=== PATIENT | male | born 1945 | race Caucasian/White ===

== ENCOUNTER 2018-05-15 22:17 | Emergency (ER) | payer OTHER, MEDICARE ==
[2018-05-15] MEDS ORDERED: Cyclobenzaprine 10 MG Tab PO ONE (22:39)
[2018-05-15] MEDS ORDERED: predniSONE 20 MG Tab PO ONE (22:39)
[2018-05-15] MEDS ORDERED: Ketorolac 30 MG/ML SDV IM ONE (22:39)
[2018-05-15] MEDS ORDERED: Take Home: Cyclobenzaprine 10 MG Tab, 4 Tab Pack PO ONE (22:40)
--- NOTE | 2018-05-15 22:48 | EDM.PDOC ---
ED HPI GENERAL MEDICAL PROBLEM - General Chief Complaint: Back Pain or Injury Stated Complaint: Back pain with spasms Time Seen by Provider: 05/15/18 22:33 Source of Information: Reports: Patient History Limitations: Reports: No Limitations - History of Present Illness INITIAL COMMENTS - FREE TEXT/NARRATIVE: Patient presents this evening with complaints of lower back pain. States for the last 2 days he's been following up and putting away his aboveground pool. He 's been making shovel-like movements while pulling when it in order to do this. He also describes the pain as being spasm-like. He states that it'll spasm, causing tightness of his muscles to the lower left side as well as into the abdominal muscles. He does also state that earlier this evening retreaded to do some additional physical work and due to the pain he dropped to his knees. He denies any numbness or tingling down either leg. He states that tonight's pain started around 5:00. He did take a couple of ibuprofen earlier this evening. He does state the pain is worse on movement. Additional review of systems and history of present illness indicate no headache, no chest pain or shortness of breath, patient is urinating and having regular bowel movements. He denies any blood in urine or stool. He denies any abdominal pain except for when his back spasms. He also states that when he doesn't move his pain is minimal to nonexistent. Onset: Today, Sudden Duration: Intermittent Location: Reports: Back Quality: Reports: Sharp, Other (spasms) Worsens with: Reports: Movement Associated Symptoms: Reports: No Other Symptoms - Related Data Allergies Allergy/AdvReac Type Severity Reaction Status Date / Time codeine Allergy Stomach Verified 05/15/18 23:04 Upset ED ROS GENERAL - Review of Systems Review Of Systems: See Below Constitutional: Reports: No Symptoms HEENT: Reports: No Symptoms Respiratory: Reports: No Symptoms Cardiovascular: Reports: No Symptoms Endocrine: Reports: No Symptoms GI/Abdominal: Reports: Abdominal Pain (duing spasms) : Reports: No Symptoms Musculoskeletal: Reports: Back Pain Skin: Reports: No Symptoms Neurological: Reports: No Symptoms Psychiatric: Reports: No Symptoms Hematologic/Lymphatic: Reports: No Symptoms Immunologic: Reports: No Symptoms ED EXAM,LOWER BACK PAIN/INJURY - Physical Exam Exam: See Below Exam Limited By: No Limitations General Appearance: Alert, WD/WN, Mild Distress Eye Exam: Bilateral Eye: EOMI, PERRL Head: Atraumatic, Normocephalic Respiratory/Chest: No Respiratory Distress, Lungs Clear, Normal Breath Sounds, No Accessory Muscle Use, Chest Non-Tender Cardiovascular: Normal Peripheral Pulses, Regular Rate, Rhythm, No Edema, No Gallop, No JVD, No Murmur, No Rub GI/Abdominal: Normal Bowel Sounds, Soft, Non-Tender, No Organomegaly, No Distention, No Abnormal Bruit, No Mass Back Exam: Normal Inspection. No: Full Range of Motion (Limited ROM due to pain and stiffness.) Extremities: Normal Inspection, Normal Range of Motion, Non-Tender, No Pedal Edema, Normal Capillary Refill Neurological: Alert, Normal Mood/Affect, Normal Dorsiflexion, CN II-XII Intact, Normal Plantar Flexion, Normal Gait, Normal Reflexes, No Motor/Sensory Deficits , Oriented x 3 Psychiatric: Normal Affect, Normal Mood Skin Exam: Warm, Dry, Intact, Normal Color, No Rash Lymphatic: No Adenopathy Course - Orders/Labs/Meds Meds: Medications Discontinued Medications Generic Name Dose Route Start Last Admin Trade Name Freq PRN Reason Stop Dose Admin Cyclobenzaprine HCl 10 mg 05/15/18 22:39 Flexeril PO 05/15/18 22:40 ONETIME ONE Cyclobenzaprine HCl 1 packet 05/15/18 22:40 Take Home: Cyclobenzaprine 10 Mg, 4 Tab Pack PO 05/15/18 22:41 ONETIME ONE Ketorolac Tromethamine 30 mg 05/15/18 22:39 Toradol IM 05/15/18 22:40 ONETIME ONE Prednisone 20 mg 05/15/18 22:39 Prednisone PO 05/15/18 22:40 ONETIME ONE Departure - Departure Time of Disposition: 23:12 Disposition: Home, Self-Care 01 Condition: Good Clinical Impression: Lumbar back pain - Discharge Information *PRESCRIPTION DRUG MONITORING PROGRAM REVIEWED*: No *COPY OF PRESCRIPTION DRUG MONITORING REPORT IN PATIENT D[place]: No Instructions: Muscle Strain, [id number], Back Pain, Adult Forms: ED Department Discharge Additional Instructions: Stay well hydrated and apply heat to help relieve your back muscle spasms. May use a warm/hot bath or hot tub to soak. Move as much as you are comfortable. Sitting and lying down make your muscles stiff. Follow up with your primary doctor for additional symptom management. Take the flexeril up to three times daily. If you have any further questions or concerns, please call us at anytime. - Problem List & Annotations (1) Lumbar back pain SNOMED Code(s): 153374933 Code(s): M54.5 - LOW BACK PAIN Status: Acute Priority: Low Current Visit: Yes - Problem List Review Problem List Initiated/Reviewed/Updated: Yes - Assessment/Plan Assessment:: low back pain Plan: Stay well hydrated and apply heat to help relieve your back muscle spasms. May use a warm/hot bath or hot tub to soak. Move as much as you are comfortable. Sitting and lying down make your muscles stiff. Follow up with your primary doctor for additional symptom management. Take the flexeril up to three times daily. If you have any further questions or concerns, please call us at anytime.
== END 2018-05-15 23:35 | disposition home or self-care (01) ==
LOC: VM.ED 22:17
DX: M54.5 Low back pain (principal); Z88.5 Allergy status to narcotic agent
CPT/HCPCS: 96372; 99283; A9270; J1885

== ENCOUNTER 2021-05-02 04:25 | Emergency (ER) | payer OTHER, MEDICARE ==
[2021-05-02] MEDS ORDERED: EPINEPHrine 1 MG/1 ML Amp SUBCUT ONE (04:58)
[2021-05-02] MEDS ORDERED: Sodium Chloride 0.9% 10 ML Syringe FLUSH PRN (04:59)
[2021-05-02] MEDS ORDERED: methylPREDNISolone Sodium Succinate 125 MG/2 ML SDV IVPUSH ONE (04:59)
[2021-05-02] MEDS ORDERED: diphenhydrAMINE 50 MG/ML SDV IVPUSH ONE (04:59)
[2021-05-02] MEDS ORDERED: Sodium Chloride 0.9% 1,000 ML IV ONE (05:00)
--- NOTE | 2021-05-02 05:18 | EDM.PDOC ---
ED HPI GENERAL MEDICAL PROBLEM - General Chief Complaint: Allergic Reaction Stated Complaint: Rash, itching, upper abdominal pain, nausea Time Seen by Provider: 05/02/21 04:55 Source of Information: Reports: Patient, Family History Limitations: Reports: No Limitations - History of Present Illness INITIAL COMMENTS - FREE TEXT/NARRATIVE: Patient presents with generalized itchy rash and chest tightness. He states he went to bed in his usual state of health. He has some candy he usually had and took his medication of a statin, beta deshawn and aspirin. He felt fine. Yesterday he had been at [place] at [employer] and walked through some tall weeds in pants and boots. He went to bed and at about 4:15 he was awakened by itching in the groin. He quickly noted itching in his hands and abdomen too. He awoke his and they noted a generalized rash and redness. He noted some upper abdominal tightness or chest tightness. No breathing or swallowing difficulty. he feels slightly nauseated. He is allergic to codeine and states he had a similar reaction to some candy many years ago, but can't remember what kind of candy it was. He denies any new candy, food, soaps, lotions, detergent etc. He ate supper of sausage and potatoes with some slices of tomato followed by dark chocolate and nuts. None of these things are new. He does state that his dad was allergic to tomatoes. no other food after supper at 2200. Went to bed at 200 after taking his usual medications Had had his covid vaccinations. He has a generalized rash with some tightness in his throat. Feels a little shaky Onset: Today, Sudden Duration: Getting Worse Location: Reports: Head, Face, Neck, Chest, Abdomen, Back, Generalized Severity: Moderate Upper Abdominal Pain Score (Numeric/FACES): 5 - Related Data Allergies Allergy/AdvReac Type Severity Reaction Status Date / Time codeine AdvReac Stomach Verified 07/11/18 09:06 Upset Home Meds: Home Meds Aspirin 81 mg PO DAILY 05/16/18 [History] EPINEPHrine [Epipen] 0.3 mg IM ASDIRECTED PRN #1 pen 05/02/21 [Rx] predniSONE [Prednisone] 40 mg PO DAILY 3 Days #6 tablet 05/02/21 [Rx] Past Medical History Cardiovascular History: Reports: CAD, High Cholesterol, Hypertension Neurological History: Reports: Other (See Below) (history of skull fracture) - Past Surgical History Cardiovascular Surgical History: Reports: Coronary Artery Bypass Social & Family History - Tobacco Use Tobacco Use Status *Q: Current Every Day Tobacco User - Recreational Drug Use Recreational Drug Use: No Drug Use in Last 12 Months: No - Living Situation & Occupation Living situation: Reports: , with Spouse ED ROS ALLERGIC REACTION - Review of Systems Review Of Systems: See Below Constitutional: Reports: No Symptoms. Denies: Fever, Chills, Malaise, Weakness HEENT: Reports: Throat Swelling. Denies: Hearing Loss, Rhinitis, Sinus Problem Respiratory: Reports: Shortness of Breath. Denies: Pleuritic Chest Pain, Cough Cardiovascular: Reports: Other (chest tightness) Endocrine: Reports: No Symptoms GI/Abdominal: Reports: Difficulty Swallowing, Nausea, Other (epigastric discomfort). Denies: Diarrhea, Vomiting : Reports: No Symptoms. Denies: Dysuria, Frequency Musculoskeletal: Reports: No Symptoms Skin: Reports: Pruritis, Rash, Erythema, Urticaria Neurological: Reports: Tremors Psychiatric: Reports: No Symptoms Hematologic/Lymphatic: Reports: No Symptoms ED EXAM GENERAL NO PERIP PULSE - Physical Exam Exam: See Below Exam Limited By: No Limitations General Appearance: Alert, WD/WN, No Apparent Distress, Mild Distress Eye Exam: Bilateral Eye: EOMI, Normal Inspection, PERRL Ears: Normal External Exam, Normal Canal, Normal TMs Nose: Normal Inspection, Normal Mucosa, No Blood Throat/Mouth: Normal Lips, Normal Oropharynx, Normal Voice, Other (dry mucous membranes, uvula not swollen,phonation normal ) Head: Atraumatic, Normocephalic Neck: Normal Inspection, Supple, Non-Tender, Full Range of Motion. No: Lymphadenopathy (L), Lymphadenopathy (R) Respiratory/Chest: No Respiratory Distress, Decreased Breath Sounds (bases) Cardiovascular: Normal Peripheral Pulses, Regular Rate, Rhythm, No Edema, No Murmur GI/Abdominal: Normal Bowel Sounds, Soft, Non-Tender, No Organomegaly Extremities: Normal Inspection, Normal Range of Motion, Non-Tender, No Pedal Edema, Normal Capillary Refill Neurological: Alert, Oriented, CN II-XII Intact, Normal Cognition Skin Exam: Erythema, Other (wide spread erythematous rash with urticarial wheals noted. ) #1 Interpretation EKG Date: 05/02/21 Time: 04:29 Rhythm: NSR Rate (Beats/Min): 77 [place]: Normal P-Wave: Present QRS: Normal ST-T: Normal QT: Normal VA/PQ Interval: borderline prolonged Comparison: NA - No Prior EKG Course - Vital Signs Last Recorded V/S: Last Vital Signs Temp 36.8 C 05/02/21 04:30 Pulse 73 05/02/21 04:30 Resp 9 L 05/02/21 04:30 BP 157/69 H 05/02/21 04:30 Pulse Ox 93 L 05/02/21 04:30 - Orders/Labs/Meds Orders: Active Orders 24 hr Category Date Time Status Cardiac Monitoring [RC] . DIRECTED Care 05/02/21 04:59 Ordered Chest 2V [CR] Stat Exams 05/02/21 04:59 Ordered Sodium Chloride 0.9% [Saline Flush] Med 05/02/21 04:59 Ordered 10 ml FLUSH ASDIRECTED PRN Peripheral IV Insertion Adult [OM.PC] Routine Oth 05/02/21 04:59 Ordered Medication Orders Sodium Chloride (Sodium Chloride 0.9% 10 Ml Syringe) 10 ml FLUSH ASDIRECTED PRN PRN Reason: Keep Vein Open Labs: Laboratory Tests 05/02/21 05/02/21 05/02/21 Range/Units 05:00 05:00 05:00 WBC 8.5 (4.0-10.0) x10^3/uL RBC 5.00 (4.5-6.0) x10^6/uL Hgb 16.4 (14.0-18.0) g/dL Hct 47.2 (40.0-52.0) % MCV 94.4 H (78.0-93.0) fL MCH 32.8 H (26.0-32.0) pg MCHC 34.7 (32.0-36.0) g/dL RDW Coeff of Elio 11.8 (10.0-15.0) % Plt Count 255 (130-400) x10^3/uL Immature Gran % (Auto) 0.10 (0.00-0.43) % Neut % (Auto) 64.3 (50.0-80.0) % Lymph % (Auto) 29.0 (25.0-50.0) % Carlton % (Auto) 5.3 (2.0-11.0) % Eos % (Auto) 1.2 (0.0-4.0) % Baso % (Auto) 0.1 L (0.2-1.2) % Neut # (Auto) 5.5 (1.8-7.7) x10^3/uL Lymph # (Auto) 2.5 (1.0-4.8) x10^3/uL Carlton # (Auto) 0.5 (0.0-0.8) x10^3/uL Eos # (Auto) 0.1 (0.0-0.5) x10^3/uL Baso # (Auto) 0.0 (0.0-0.2) x10^3/uL Immature Gran # (Auto) 0.01 (0.00-0.07) x10^3/uL Sodium 141 (136-145) mmol/L Potassium 3.6 (3.5-5.1) mmol/L Chloride 104 (98-107) mmol/L Carbon Dioxide 27 (21-32) mmol/L Anion Gap 13.6 (5-15) mmol/L BUN 18 (7-18) mg/dL Creatinine 0.9 (0.70-1.30) mg/dL Est Cr Clr Drug Dosing TNP Estimated GFR (MDRD) > 60 Glucose 122 H (70-99) mg/dL Calcium 8.5 (8.5-10.1) mg/dL Corrected Calcium 8.7 (8.5-10.1) mg/dL Total Bilirubin 0.6 (0.2-1.0) mg/dL AST 14 L (15-37) U/L ALT 19 (16-63) U/L Alkaline Phosphatase 65 (46-116) U/L Troponin I High Sens 5 (<=76) ng/L Total Protein 6.8 (6.4-8.2) g/dL Albumin 3.8 (3.4-5.0) g/dL Globulin 3.0 Albumin/Globulin Ratio 1.27 SARS-CoV-2 RNA (LIGIA) Negative (NEGATIVE) Meds: Medications Generic Name Dose Route Start Last Admin Trade Name Freq PRN Reason Stop Dose Admin Sodium Chloride 10 ml 05/02/21 04:59 Sodium Chloride 0.9% 10 Ml Syringe FLUSH ASDIRECTED PRN Keep Vein Open Discontinued Medications Generic Name Dose Route Start Last Admin Trade Name Russell PRN Reason Stop Dose Admin Diphenhydramine HCl 25 mg 05/02/21 04:59 05/02/21 05:13 Diphenhydramine 50 Mg/Ml Sdv IVPUSH 05/02/21 05:00 25 mg ONETIME ONE Administration Epinephrine HCl 0.3 mg 05/02/21 04:58 05/02/21 05:10 Epinephrine 1 Mg/1 Ml Amp SUBCUT 05/02/21 04:59 0.3 mg ONETIME ONE Administration Sodium Chloride 1,000 mls @ 999 mls/hr 05/02/21 05:00 05/02/21 05:05 Normal Saline IV 05/02/21 06:00 999 mls/hr ONETIME ONE Administration Methylprednisolone Sodium Succinate 125 mg 05/02/21 04:59 05/02/21 05:15 Methylprednisolone Sodium Succinate 125 Mg/2 Ml Sdv IVPUSH 05/02/21 05:00 125 mg ONETIME ONE Administration - Radiology Interpretation Free Text/Narrative:: preliminiary read, small pleural effusion on the left. no cardiomegaly or acute reaction/change - Re-Assessments/Exams Free Text/Narrative Re-Assessment/Exam: 05/02/21 05:35 Patient is appearing to have an allergic reaction to unknown irritant. Will give epinephrine 0.3 mg IM, start an IV with fluids, solu medrol 125 mg IVP, benadryl 25 mg IVP. Will have to monitor for an hour at least. Will check labs, chest x-ray. 05/02/21 05:55 patient is to x-ray , VSS doing well 05/02/21 06:20 ffeeling much better. advised to avoid chocolate, nuts and tomatoes. needs to g et to hotel maintenance engineer for testing. Will prescribe prednisone daily for 3 more days/ Epi pen as needed. CAn take benadryl every 4-6 hours. Departure - Departure Time of Disposition: 06:22 Disposition: Home, Self-Care 01 Condition: Good Clinical Impression: Allergic reaction - Discharge Information *PRESCRIPTION DRUG MONITORING PROGRAM REVIEWED*: Not Applicable *COPY OF PRESCRIPTION DRUG MONITORING REPORT IN PATIENT DILLON: Not Applicable Prescriptions: EPINEPHrine [Epipen] 0.3 mg IM ASDIRECTED PRN #1 pen PRN Reason: Allergies predniSONE [Prednisone] 40 mg PO DAILY 3 Days #6 tablet Instructions: Anaphylactic Reaction, Adult, Allergies, Adult, Echf-et-Caht, How to Use an Auto-Injector Pen Forms: ED Department Discharge Additional Instructions: keep track of all foods, medications, etc that you take in by journal. Avoid chocolate, tomoato, and nuts. You were given epinephrine in the ED along with Steroids and benadryl. Start taking prescription of steroids daily starting tomorrow. You can take 25-50 mg of benadryl every 406 hours. You were prescribed an epipen. This is to be used when you feel throat tightening or have difficulty breathing. Make appointment with hotel maintenance engineer for formal allergy testing. Return to the ED as needed Sepsis Event Note (ED) - Focused Exam Vital Signs: Vital Signs Temp Pulse Resp BP Pulse Ox 05/02/21 04:30 36.8 C 73 9 L 157/69 H 93 L - My Orders Last 24 Hours: My Active Orders 05/02/21 04:59 Cardiac Monitoring [RC] . DIRECTED Chest 2V [CR] Stat Sodium Chloride 0.9% [Saline Flush] 10 ml FLUSH ASDIRECTED PRN Peripheral IV Insertion Adult [OM.PC] Routine - Assessment/Plan Last 24 Hours: My Active Orders 05/02/21 04:59 Cardiac Monitoring [RC] . DIRECTED Chest 2V [CR] Stat Sodium Chloride 0.9% [Saline Flush] 10 ml FLUSH ASDIRECTED PRN Peripheral IV Insertion Adult [OM.PC] Routine
[2021-05-02 06:01] LABS: CHLORIDE,CL 104 mmol/L (98-107); SODIUM,NA 141 mmol/L (136-145)
[2021-05-02 06:03] LABS: ANION GAP 13.6 mmol/L (5-15)
--- NOTE | 2021-05-05 13:43 | CR ---
[id number] RAD/RAD Chest PA And Lateral EXAM: RAD Chest PA And Lateral CLINICAL DATA: SHORTNESS OF BREATH COMPARISON: No previous similar exam is available. FINDINGS: Pleural reaction in the left hemithorax is seen likely secondary to old rib fractures The lungs are otherwise clear but hyperaerated The cardiomediastinal contour is moderately enlarged IMPRESSION: CHRONIC OBSTRUCTIVE PULMONARY DISEASE Ruslan Beckett MD 05/05/21 [id number] Thank you for allowing us to participate in the care of your patient.
== END 2021-05-02 06:56 | disposition home or self-care (01) ==
LOC: VM.ED 04:25
DX: T78.1XXA Other adverse food reactions, not elsewhere classified, initial encounter (principal); I25.10 Atherosclerotic heart disease of native coronary artery without angina pectoris; I10 Essential (primary) hypertension; Z72.0 Tobacco use; Z88.5 Allergy status to narcotic agent; Z79.82 Long term (current) use of aspirin; Z79.899 Other long term (current) drug therapy; Z20.822 Contact with and (suspected) exposure to COVID-19
CPT/HCPCS: 71046; 80053; 84484; 85025; 93010; 96372; 96374; 96375; 99284; 99284-25; J0171; J1200; J2930; J7030; U0002

== ENCOUNTER 2023-02-15 02:42 | Emergency (ER) | payer OTHER, MEDICARE ==
[2023-02-15] MEDS: Proparacaine 0.5% Ophth Soln 15 ML Bottle EYELF PRN (02:55)
[2023-02-15] MEDS: Fluorescein 1 MG Ophth Strip EYELF ONE (02:58)
[2023-02-15] MEDS: Take Home: Gentamicin 0.3% Ophth Soln 5 ML, 1 Bottle Pack EYEBOTH ONE (03:15)
== END 2023-02-15 03:23 | disposition home or self-care (01) ==
LOC: VM.ED 02:42
DX: S05.02XA Injury of conjunctiva and corneal abrasion without foreign body, left eye, initial encounter (principal); I25.10 Atherosclerotic heart disease of native coronary artery without angina pectoris; I10 Essential (primary) hypertension; Z88.5 Allergy status to narcotic agent; Z79.82 Long term (current) use of aspirin
CPT/HCPCS: 99283; A9270; J3490

== ENCOUNTER 2024-12-29 23:30 | Emergency (ER) | payer OTHER, MEDICARE ==
[2024-12-29] MEDS: Ketorolac 15 MG/ML SDV IM ONE (23:54)
[2024-12-29] MEDS: diazePAM 10 MG/2 ML Syringe IM ONE (23:55)
[2024-12-30] MEDS: diazePAM 10 MG/2 ML Syringe IM ONE (00:57)
[2024-12-30] MEDS: oxyCODONE 5 MG Tab PO ONE (00:57)
== END 2024-12-30 01:11 | disposition home or self-care (01) ==
LOC: VM.ED 23:30
DX: M54.50 Low back pain, unspecified (principal); I25.10 Atherosclerotic heart disease of native coronary artery without angina pectoris; E78.00 Pure hypercholesterolemia, unspecified; I10 Essential (primary) hypertension; Z95.1 Presence of aortocoronary bypass graft; Z88.5 Allergy status to narcotic agent; Z79.82 Long term (current) use of aspirin; Z79.899 Other long term (current) drug therapy
CPT/HCPCS: 72100; 96372; 99283; A9270-GY; J1885; J3360